=== PATIENT | female | born 1990 | race Caucasian/White ===

== ENCOUNTER 2018-04-28 18:54 | Observation (INO) | payer OTHER ==
[2018-04-28] MEDS: Lactated Ringers 1,000 ML IV SCH ×2 (19:23→21:10)
[2018-04-28] MEDS ORDERED: Nitrofurantoin Monohydrate/Macrocrystalline 100 MG Cap PO ONE (20:02)
[2018-04-28] MEDS ORDERED: metroNIDAZOLE 250 MG Tab PO ONE (20:02)
[2018-04-28] MEDS ORDERED: Ondansetron 4 MG/2 ML SDV IV ONE (20:10)
[2018-04-28] MEDS: Terbutaline 1 MG/ML SDV SUBCUT PRN ×2 (20:19→21:11)
[2018-04-28] MEDS ORDERED: diphenhydrAMINE 25 MG Tab PO PRN (22:01)
[2018-04-28] MEDS ORDERED: Acetaminophen 325 MG Tab PO PRN (22:01)
[2018-04-29] MEDS: Lactated Ringers 1,000 ML IV SCH (01:58)
--- NOTE | 2018-04-30 11:05 | DISCH ---
HISTORY: This patient is a 27-year-old female who was followed by Dr. Cong Domínguez in [place]. Her chief complaint was sunburn to her feet and lower abdominal discomfort. When she was admitted for observation last night, she did have threatened labor. Although she denied all urinary symptoms. She definitely had an abnormal urinalysis and the culture is pending at the present time. The patient does have high likelihood of UTI, of course. She was begun on Macrobid last night. Also because of the presence of clue cells, she was begun on Flagyl 500 mg p.o. b.i.d. for 1 week last night. The patient has had rather poor hydration and rather poor food intake the last day or two and has been spending considerable time in the sun in the [place] area. Her mother has been with her also. She denies any back pain or fever. Because of her threatened labor and the abnormal UA, she was observed briefly over the night last night, now this morning on 04/29/2018, she is stable and improved. Please see my written H and P from last night on 04/28/2018, that is going to be scanned and put in the [facility] system. As mentioned above, the patient has had a very stable night. Her cervix on admission observation last night revealed the external os was 1 cm dilated and the internal os was closed and 50%, presenting part was very high and undetermined. The patient is at approximately 31 weeks 3 days' gestation with an BALDEMAR of June 26. She lives in the [facility] and has a future appointment in 2 to [address] Cong Domínguez in [facility]. The patient was given oral hydration as well as IV hydration last night. She also was given 2 intermittent doses of terbutaline subcutaneously. This did seem to abolish her contractions. Her degree of dehydration also was probably a factor with her uterine contractions last night. Her vital signs are stable today. She is discharged home now in good condition. We did thoroughly emphasize the importance to the patient as well as her mother to have appropriate oral hydration in the future and to also improve her nutritional intake. She also was instructed to keep either us or Dr. Cong Domínguez informed in the [facility] if any recurrence of frequent false labor that seems to lead on to any of the signs and symptoms of true labor which we thoroughly explain to her. She also will use either Benadryl cream or calamine cream for her dorsum of her feet where her sunburn is. There is no blistering in this area. She also has significant ankle and pedal edema. She will elevate her feet as often as possible and avoid excessive sodium or avoid intake of too many things that come from a bag box or a can. Other discharge medications consist of: 1. Macrobid 100 mg p.o. b.i.d. for 7 more days. 2. Flagyl 500 mg p.o. b.i.d. for 7 more days. 3. She will continue with her vitamin and all other medications that she was accustomed to taking antenatally. All of her questions have been answered as best as possible and the patient and her mother assured me that they will keep me or Dr. Cong Domínguez informed and they will try to follow our instructions. FINAL DIAGNOSES: 1. at 31 weeks 3 days' gestation. The patient is a 27-year-old, 1. 2. Dehydration and poor nutrition. 3. Urinary tract infection. 4. Sun burn of dorsum of feet. The patient was also given a work release to excuse her from working at her employer's today, 04/29/2018. [facility] /[id number]
== END 2018-04-29 11:25 | disposition home or self-care (01) ==
LOC: DL.MS 23:00
PROVIDERS: ADMIT Obstetrics & Gynecology; ATTEND Obstetrics & Gynecology
DX: O99.713 Diseases of the skin and subcutaneous tissue complicating pregnancy, third trimester (principal); L55.9 Sunburn, unspecified; O23.43 Unspecified infection of urinary tract in pregnancy, third trimester; E86.0 Dehydration; Z3A.31 31 weeks gestation of pregnancy; Z79.2 Long term (current) use of antibiotics; Z88.2 Allergy status to sulfonamides
CPT/HCPCS: 81001; 87086; 96361; 96372; 96374; A9270; G0378; J2405; J3105; J7120